=== PATIENT | female | born 1955 | race Caucasian/White ===

== ENCOUNTER 2016-12-13 20:53 | Day surgery (SDC) | payer BC ==
[~2016-12-13] VITALS: Ht 154.9 cm; Wt 59.1 kg
[2016-12-13 21:00] LABS: BASOPHILS 0.6 % (0-2); EOSINOPHILS 1.1 % (0-7); HEMATOCRIT 39.3 % (36.0-48.0); HEMOGLOBIN 13.6 g/dL (12-16); IMMATURE GRANULOCYTES 0.2 % (0-5); LYMPHOCYTES 19.5 % (15-50); MCH 33.1 pg (26.0-34.0); MCHC 34.6 g/dL (31.0-37.0); MCV 95.6 fL (80.0-100.0); MEAN PLATELET VOLUME 10.6 fL (7.4-10.4); MONOCYTES 6.6 % (2-11); PLATELET COUNT 238 10x3/uL (130-400); RBC 4.11 10x6/uL (4.00-5.40); RDW 12.5 % (11.5-14.5); WBC 11.1 10x3/uL (4.8-10.8)
[2016-12-13 21:15] LABS: ALBUMIN 4.1 g/dL (3.4-5.0); ANION GAP 15.9 mmol/L (8-16); BILIRUBIN - TOTAL 0.19 mg/dL (0.2-1.3); CALCIUM 9.4 mg/dL (8.5-10.1); CARBON DIOXIDE 26.5 mmol/L (21.0-32.0); CREATININE - SERUM 0.9 mg/dL (0.6-1.3); POTASSIUM - SERUM 3.4 mmol/L (3.5-5.1)
--- NOTE | 2016-12-13 23:31 | NUR ---
DUONEB UPDRAFT GIVEN IN RR PER ANESTHESIA
[2016-12-14] VITALS (11 sets, daily range): BP systolic 109–151; BP diastolic 60–79; Ht 154.9 cm; Wt 59.1 kg
--- NOTE | 2016-12-14 04:50 | NUR ---
IV RESITED LOYD #20 X1 STICK.
--- NOTE | 2016-12-14 07:50 | NUR ---
HOPEFUL FOR DISCHARGE, DENIES NEEDS, NO PAIN NOTED, BED LOWEST POSITION , CALL LIGHT IN REACH, WILL CONTINUE TO MONITOR
[2016-12-14] MEDS ORDERED: PERCOCET 5-3251 TAB PO (08:46)
[2016-12-14] MEDS ORDERED: BACTRIM DS TABL1 TAB PO (08:47)
--- NOTE | 2016-12-14 08:48 | OP ---
PATIENT NAME: PATRICIO SUNSHINE MEDICAL RECORD: [id number] LOCATION:[id number] ADMISSION DATE:12/13/16 SURGEON: RAGHU FRANCOIS MD DATE OF OPERATION: 12/13/2016 DATE OF OPERATION: 12/13/2016. PREOPERATIVE DIAGNOSIS: Grade I open distal radius fracture of the left arm. POSTOPERATIVE DIAGNOSIS: Grade I open distal radius fracture of the left arm. PROCEDURE: 1. Open reduction internal fixation of grade I distal radius fracture. 2. Excisional debridement with irrigation and closure of the open wound, skin, subcutaneous tissue only less than 20 cm. SURGEON: Raghu Francois MD. ANESTHESIA: General. INTRAOPERATIVE COMPLICATIONS: None. SUMMARY OF PATHOLOGIC FINDINGS: A very unstable distal radius fracture, 100% displaced, and the opening was less than 1 cm. The patient did have ulnar nerve deficit preoperatively, mild carpal tunnel syndrome preoperatively, thus the carpal tunnel canal was completely released. IMPLANTS USED: 2Duche AxSOS system distal radius set. OPERATIVE SUMMARY IN DETAIL: After obtaining the appropriate preoperative orthopedic surgery consent as well as anesthetic consultation, evaluation and clearance, the patient was brought to the operating room and placed on table in supine position. After adequate general endotracheal anesthesia was administered, tourniquet was placed about the proximal aspect of the left upper extremity. Left upper extremity was then prepped and draped in routine sterile fashion. The arm was elevated and exsanguinated, tourniquet inflated to 350 mmHg. Curvilinear incision was made in keeping with the volar approach. This was taken down to the level of the flexor carpal radialis which was used as a landmark. Median nerve was identified and was released through the entire carpal tunnel because of the hematoma noted. This was gently reflected pronator quadratus was reflected and the fracture was noted. The fracture was held in a reduced position. The plate was affixed in the appropriate position under fluoroscopy. Serial and sequential drill and fill technique was utilized with both combination of locking and nonlocking screws under fluoroscopic guidance. Having completed this, final radiographs taken and submitted for radiologist review. The wound was copiously irrigated and closed with 2-0 Vicryl followed by 4-0 Prolene in running fashion. At this point, scalpel debridement of the open wound was utilized to excise a loose and devitalized skin tags. The wound was then irrigated and closed with 4-0 Prolene in interrupted fashion. Sterile dressings were applied. The patient was awakened, taken to recovery room in stable condition. All final needle and sponge counts were correct. TRANSINT:[id number] Voice Confirmation ID: [id number] DOCUMENT ID: [id number] OPERATIVE REPORT [id number] PATRICIO SUNSHINE MD, RAGHU GARCIA at 0848 CC: [id number] DICTATION DATE: 12/13/162305 [employer] ASSEM[employer]ER: 12/14/16 0258 ADM IN [place] [id number] [place] [address]
--- NOTE | 2016-12-14 10:51 | NUR ---
DISCHARGE PAPERS AND INSTRUCTIONS GIVEN TO PATIENT, QUESTIONS ANSWERED, IV REMOVED TIP INTACT, DISCHARGED PER WC WITH BELONGINGS WITH ROOMATE
== END 2016-12-14 10:53 | disposition home or self-care (01) ==
LOC: OBSVTIME → D.OPS 20:53 → D.MS 22:35 → D.ER 22:35 → OBSVTIME 22:35 → D.OPS 12-14 10:53 → D.MS 12-14 10:53
PROVIDERS: Emergency Medicine
DX: S52.502B Unspecified fracture of the lower end of left radius, initial encounter for open fracture type I or II (principal); F17.200 Nicotine dependence, unspecified, uncomplicated; E11.9 Type 2 diabetes mellitus without complications; Z01.812 Encounter for preprocedural laboratory examination